=== PATIENT | female | born 1975 | race African-American/Black ===

== ENCOUNTER 2017-05-11 15:02 | Emergency (ER) | payer MEDICARE, MEDICAID, OTHER ==
[2017-05-11] MEDS ORDERED: Ketorolac Tromethamine 30 MG/ML VIAL ONE (17:35)
[2017-05-11 17:59] LABS: Bilirubin Small (Negative); Blood, Urine Negative (Negative); Glucose, Urine (Dipstick) Negative (Negative); Ketone, Urine Negative (Negative); Nitrite Negative (Negative); Protein, Urine (Dipstick) 30 mg/dL (Neg-Trace)
[2017-05-11 18:14] LABS: Bacteria/HPF 1+ HPF (None Seen)
[2017-05-11 18:16] LABS: Hyaline Casts/LPF 0-3 HYALINE CAST LPF (0-3 Hyaline); RBC/HPF 0-3 HPF (0-3)
--- NOTE | 2017-05-11 19:03 | RAD ---
TWO VIEWS LUMBAR SPINE: History: Back pain. Date: 05-11-17 Comparison: 05-30-13 FINDINGS: AP and lateral views obtained and demonstrate five non rib bearing lumbar vertebrae. No evidence of l umbar spine fractures, subluxations, or bony lesions seen. IMPRESSION: Normal two views lumbar spine. POS: [facility]
== END 2017-05-11 18:51 | disposition home or self-care (01) ==
LOC: ERS 15:02
DX: M54.5 Low back pain (principal); I10 Essential (primary) hypertension; M10.9 Gout, unspecified; J45.909 Unspecified asthma, uncomplicated; F32.9 Major depressive disorder, single episode, unspecified; F17.210 Nicotine dependence, cigarettes, uncomplicated; X50.1XXA Overexertion from prolonged static or awkward postures, initial encounter
CPT/HCPCS: 72100; 81003; 81015; 81025; 96372; 99406; J1885

== ENCOUNTER 2023-11-06 00:57 | Inpatient (IN) | payer MEDICARE, MEDICAID ==
[2023-11-06] MEDS ORDERED: Nitroglycerin 50 MG/250 ML BOT 250 ML ONE (01:02)
[2023-11-06] MEDS ORDERED: Propofol 1,000 MG/100 ML VIAL IV ONE ×2 (01:10→04:13)
[2023-11-06] MEDS ORDERED: Furosemide 40 MG (4 mL) VIAL ONE (01:10)
[2023-11-06] MEDS ORDERED: Ketorolac Tromethamine 30 MG (1 mL) VIAL ONE (01:24)
[2023-11-06] MEDS ORDERED: Cefepime 2 GM VIAL ONE ×2 (01:24→01:43)
[2023-11-06] MEDS ORDERED: methylPREDNISolone Sod Succ/PF 125 MG/2 ML VIAL ONE (01:24)
[2023-11-06] MEDS ORDERED: Sodium Chloride 0.9% 100 ML ONE ×2 (01:25→01:43)
[2023-11-06 01:27] LABS: #Basophils 0.08 10x3/uL (0.0-0.2); #Eosinphils Less than 0.03 10x3/uL (0.0-0.7); %Basophils 0.4 % (0.0-1.0); %Lymphocytes 8.4 % (21.0-51.0); %Monocytes 2.6 % (0.0-10.0); %Neutrophils 87.6 % (42.0-75.0); Hematocrit 27.5 % (36.0-47.0); Hemoglobin 7.6 g/dL (12.0-16.0); Mean Corpuscular HGB CONC 27.6 g/dL (32.0-36.0); Mean Corpuscular Hemoglobin 18.2 pg (27.0-31.0); Mean Corpuscular Volume 65.9 fL (78.0-98.0); Mean Platelet Volume 9.2 fL (7.4-10.4); Platelet Count 507 10x3/uL (130-400); Red Blood Cell (RBC) Count 4.17 mill/uL (4.20-5.40)
[2023-11-06 01:36] LABS: BHCG - Serum Negative (NEGATIVE); Pregs Control Background? CLEAR/WHITE (CLR/WHITE); Pregs Control Bar Appear? YES (CONTROL BAR)
[2023-11-06 01:41] LABS: INR-International Normal Ratio 1.3; PTT 31.1 sec (22.9-36.1); Prothrombin Time 16.4 sec (12.0-14.7)
[2023-11-06 01:43] LABS: Bacteria/HPF None Seen HPF (None Seen); Bilirubin Negative (Negative); Blood, Urine 1+ (Negative); CAUTI Indications for Culture Alt mental st,lethar; Clarity Clear (Clear); Glucose, Urine (Dipstick) 200 mg/dL (Negative); Ketone, Urine Negative (Negative); Leukocyte Negative Leu/uL (Negative); Nitrite Negative (Negative); Protein, Urine (Dipstick) 300 mg/dL (Neg-Trace); RBC/HPF 0-3 HPF (0-3); Specific Gravity, Urine 1.013 (1.002-1.036); Squamous Epithelial 0-3 HPF (0-3); Urobilinogen Normal mg/dL (Less than 2); pH, Urine 6.5 (5.0-9.0)
[2023-11-06 01:44] LABS: ALT (SGPT) 45 U/L (8-55); AST (SGOT) 90 U/L (5-34); Alkaline Phosphatase 287 U/L (40-110); Anion Gap 17 mmol/L (10-20); BUN (Urea Nitrogen) 20 mg/dL (7.0-18.7); Bilirubin, Total 1.4 mg/dL (0.2-1.2); Calc. Creatinine Clearance 0 mL/min (70-130); Calcium 8.4 mg/dL (7.8-10.44); Carbon Dioxide 20 mmol/L (22-29); Chloride 104 mmol/L (98-107); Estimated GFR 33; Globulin 3.9 g/dL (2.4-3.5); Glucose 303 mg/dL (70-105); Lipase 33 U/L (8-78); Potassium 3.2 mmol/L (3.5-5.1); Protein, Total 6.9 g/dL (6.0-8.3); Sodium 138 mmol/L (136-145)
[2023-11-06 01:45] LABS: Urine Culture Reflex No No
[2023-11-06 01:48] LABS: Troponin I 0.076 ng/mL (< 0.028)
[2023-11-06 01:49] LABS: Actual Bicarbonate (HCO3a) 18.4 mEq/L (22-28); Analyzer IN Cardio ER; Base Excess (BEa) -8.6 mEq/L (-2.0 to +3.0); CO2 Tension 45.2 mmHg (35.0-45.0); Calcium, Ionized (arterial) 1.13 mmol/L (1.12-1.30); Carboxyhemoglobin (COHb) 1.2 gm% (0.0-3.0); Hematocrit-ABG 25 % (36.0-47.0); Hemoglobin (Hb) 8.5 g/dL (12.0-16.0); O2 Tension (PaO2), arterial 179.4 mmHg (80.0-100.0); Potassium - ABG Lab 2.96 mmol/L (3.70-5.30); pH, Arterial 7.228 (7.35-7.45)
[2023-11-06 01:53] LABS: Puncture Site RRA
[2023-11-06] MEDS ORDERED: Aspirin Chewable 81 MG TAB ONE (01:57)
[2023-11-06] MEDS ORDERED: Vancomycin (BATCH) 2 GM/500 ML BAG ONE ×2 (02:04→02:08)
[2023-11-06 02:27] LABS: Influenza A by NAA Not Detected (NotDetected); Influenza B by NAA Not Detected (NotDetected); SARS-CoV-2 NAA Rapid Test Not Detected (NotDetected)
[2023-11-06] MEDS ORDERED: Ondansetron PF 4 MG/2 ML Vial IVP PRN (02:56)
[2023-11-06] MEDS ORDERED: Acetaminophen 325 MG TAB PER TUBE PRN (02:56)
[2023-11-06] MEDS ORDERED: fentaNYL 50 mcg/mL 1 mL Vial ONE (02:57)
[2023-11-06] MEDS ORDERED: Fentanyl CADD 100 ML IV SCH (04:00)
[2023-11-06 04:25] LABS: #Basophils Less than 0.03 10x3/uL (0.0-0.2); #Eosinphils Less than 0.03 10x3/uL (0.0-0.7); %Basophils 0.2 % (0.0-1.0); %Lymphocytes 1.3 % (21.0-51.0); %Monocytes 2.5 % (0.0-10.0); %Neutrophils 95.3 % (42.0-75.0); Hematocrit 22.5 % (36.0-47.0); Hemoglobin 6.2 g/dL (12.0-16.0); Mean Corpuscular HGB CONC 27.6 g/dL (32.0-36.0); Mean Corpuscular Hemoglobin 18.1 pg (27.0-31.0); Mean Corpuscular Volume 65.8 fL (78.0-98.0); Mean Platelet Volume 9.1 fL (7.4-10.4); Platelet Count 334 10x3/uL (130-400); RBC Distribution Width 21.2 % (11.5-14.5); Red Blood Cell (RBC) Count 3.42 mill/uL (4.20-5.40)
[2023-11-06] MEDS ORDERED: Dextrose 5% in Water 1,000 ML IV PRN (04:47)
[2023-11-06] MEDS ORDERED: Glucagon 1 MG/ML KIT IM PRN (04:47)
[2023-11-06] MEDS ORDERED: Dextrose 50% Abboject 50 ML SYRINGE SLOW IVP PRN (04:47)
[2023-11-06] MEDS ORDERED: Electrolyte Replacement Protocol 1 EACH FS PRN (04:48)
[2023-11-06 04:53] LABS: ALT (SGPT) 36 U/L (8-55); AST (SGOT) 61 U/L (5-34); Albumin 2.5 g/dL (3.5-5.0); Alkaline Phosphatase 219 U/L (40-110); Anion Gap 14 mmol/L (10-20); BUN (Urea Nitrogen) 22 mg/dL (7.0-18.7); Bilirubin, Total 0.8 mg/dL (0.2-1.2); Calc. Creatinine Clearance 0 mL/min (70-130); Calcium 7.6 mg/dL (7.8-10.44); Carbon Dioxide 19 mmol/L (22-29); Chloride 109 mmol/L (98-107); Estimated GFR 30; Globulin 3.1 g/dL (2.4-3.5); Glucose 218 mg/dL (70-105); Iron 12 ug/dL (50-170); Iron Binding Capacity, Total 381 mcg/dL (265-497); Potassium 2.8 mmol/L (3.5-5.1); Protein, Total 5.6 g/dL (6.0-8.3); Sodium 139 mmol/L (136-145)
[2023-11-06 05:16] LABS: Iron 30 ug/dL (50-170); Iron Binding Capacity, Total 381 mcg/dL (265-497)
[2023-11-06 05:56] VITALS: BMI 39.6
[2023-11-06] MEDS ORDERED: Furosemide 40 MG (4 mL) VIAL SLOW IVP SCH (06:00)
[2023-11-06] MEDS: Potassium Chloride 20 MEQ TAB PER TUBE SCH (06:16)
[2023-11-06] MEDS: Potassium Bicarbonate/Cit Ac 20 MEQ TAB PER TUBE SCH ×2 (06:21→13:59)
[2023-11-06] MEDS: Magnesium 2 GM/50 ML(in water) 2 GM in Premix 1 BAG IVPB SCH (06:22)
[2023-11-06] MEDS: Doxycycline 100 MG in Sodium Chloride 0.9% 100 ML IVPB SCH (06:22)
[2023-11-06] MEDS ORDERED: Fentanyl BOLUS 250 ML IVPB PRN (06:45)
[2023-11-06] MEDS ORDERED: Morphine 2 MG/ML VIAL SLOW IVP PRN (06:45)
[2023-11-06] MEDS ORDERED: Lorazepam 2 MG/ML VIAL SLOW IVP PRN (06:45)
[2023-11-06] MEDS ORDERED: Propofol BOLUS 1,000 MG/100 ML VIAL IV PRN (06:45)
[2023-11-06] MEDS ORDERED: HumaLOG 300 UNITS/3 ML VIAL SC PRN (07:03)
[2023-11-06] MEDS: Ipratropium/Albuterol 3 ML NEB EZPAP SCH (07:13)
[2023-11-06] MEDS: Propofol 1,000 MG/100 ML VIAL IV PRN (07:39)
[2023-11-06 07:42] LABS: Hemoglobin A1c 5.7 % (4.0-6.0)
[2023-11-06] MEDS ORDERED: Carvedilol 25 MG TAB PO SCH (08:00)
[2023-11-06 08:06] LABS: Amphetamine Not Detected (NotDetected); Barbiturates Screen Not Detected (NotDetected); Benzodiazepine Screen Not Detected (NotDetected); Cocaine Metabolite Screen Detected (NotDetected); Methadone Not Detected (NotDetected); Methamphetamine Not Detected (NotDetected); Opiate Screen Not Detected (NotDetected); Oxycodone Screen Not Detected (NotDetected); Phencyclidine (PCP) Detected (NotDetected); THC/Cannabinoid Screen Not Detected (NotDetected); Tricyclic Screen Not Detected (NotDetected)
[2023-11-06 08:41] LABS: Legionella Urinary Ag Negative (Negative); Strep pneumo Urine Ag NEGATIVE (NEGATIVE)
[2023-11-06] MEDS ORDERED: Heparin 5,000 UNITS/ML VIAL SC SCH (09:00)
[2023-11-06] MEDS: Amlodipine 10 MG TAB PO SCH (09:17)
[2023-11-06] MEDS: Pantoprazole 40 MG VIAL IVP SCH (09:17)
[2023-11-06] MEDS: Ventilator Sedation Protocol 1 EACH FS ONE (09:21)
[2023-11-06] MEDS ORDERED: Iopamidol-370 76% 500 ML MDV (1 ML CHARGE) ONE (11:26)
[2023-11-06] MEDS: HumaLOG 300 UNITS/3 ML VIAL SC PRN (12:40)
[2023-11-06 13:14] LABS: #Basophils Less than 0.03 10x3/uL (0.0-0.2); #Eosinphils Less than 0.03 10x3/uL (0.0-0.7); %Basophils 0.1 % (0.0-1.0); %Lymphocytes 2.1 % (21.0-51.0); %Monocytes 3.2 % (0.0-10.0); %Neutrophils 94.1 % (42.0-75.0); Hematocrit 25.1 % (36.0-47.0); Hemoglobin 7.2 g/dL (12.0-16.0); Mean Corpuscular HGB CONC 28.7 g/dL (32.0-36.0); Mean Corpuscular Hemoglobin 18.8 pg (27.0-31.0); Mean Corpuscular Volume 65.5 fL (78.0-98.0); Mean Platelet Volume 9.1 fL (7.4-10.4); Platelet Count 334 10x3/uL (130-400); RBC Distribution Width 22.9 % (11.5-14.5); Red Blood Cell (RBC) Count 3.83 mill/uL (4.20-5.40)
[2023-11-06 13:17] LABS: Anion Gap 19 mmol/L (10-20); BUN (Urea Nitrogen) 23 mg/dL (7.0-18.7); Calc. Creatinine Clearance 52 mL/min (70-130); Calcium 8.1 mg/dL (7.8-10.44); Carbon Dioxide 18 mmol/L (22-29); Chloride 109 mmol/L (98-107); Estimated GFR 29; Glucose 170 mg/dL (70-105); Potassium 3.5 mmol/L (3.5-5.1); Sodium 142 mmol/L (136-145)
[2023-11-06 13:48] LABS: Anisocytosis SLIGHT = 6-15 cells HPF (0-5); Microcytosis MODERATE=15-30 cells HPF (0-5); Platelet Adequacy Comment Platelets Normal; Poikilocytosis MODERATE=16-30 cells HPF (0-5); Polychromasia SLIGHT = 2-3 cells HPF (0-2)
[2023-11-06] MEDS: Cefepime 1 GM in Sodium Chloride 0.9% 100 ML IVPB SCH (13:58)
[2023-11-06] MEDS: Furosemide 20 MG (2 mL) VIAL SLOW IVP SCH (13:58)
[2023-11-06] MEDS: Fentanyl CADD 100 ML IV SCH (15:23)
[2023-11-07] MEDS: Vancomycin 1 GM in Premix 1 BAG IVPB SCH (02:00)
[2023-11-07 05:53] LABS: #Basophils 0.03 10x3/uL (0.0-0.2); #Eosinphils Less than 0.03 10x3/uL (0.0-0.7); %Basophils 0.3 % (0.0-1.0); %Eosinophils 0.1 % (0.0-10.0); %Lymphocytes 5.8 % (21.0-51.0); %Monocytes 4.1 % (0.0-10.0); %Neutrophils 89.1 % (42.0-75.0); Hematocrit 25.9 % (36.0-47.0); Hemoglobin 7.4 g/dL (12.0-16.0); Mean Corpuscular HGB CONC 28.6 g/dL (32.0-36.0); Mean Corpuscular Hemoglobin 18.7 pg (27.0-31.0); Mean Corpuscular Volume 65.4 fL (78.0-98.0); Platelet Count 309 10x3/uL (130-400); RBC Distribution Width 23.2 % (11.5-14.5); Red Blood Cell (RBC) Count 3.96 mill/uL (4.20-5.40)
[2023-11-07 06:01] LABS: Vancomycin, Random 31.3 ug/mL (See Comment)
[2023-11-07 06:03] LABS: ALT (SGPT) 37 U/L (8-55); AST (SGOT) 41 U/L (5-34); Albumin 2.5 g/dL (3.5-5.0); Alkaline Phosphatase 174 U/L (40-110); Anion Gap 13 mmol/L (10-20); BUN (Urea Nitrogen) 27 mg/dL (7.0-18.7); Bilirubin, Total 0.8 mg/dL (0.2-1.2); Calc. Creatinine Clearance 51 mL/min (70-130); Calcium 8.4 mg/dL (7.8-10.44); Carbon Dioxide 21 mmol/L (22-29); Chloride 110 mmol/L (98-107); Estimated GFR 28; Glucose 86 mg/dL (70-105); Potassium 3.3 mmol/L (3.5-5.1); Protein, Total 5.5 g/dL (6.0-8.3); Sodium 141 mmol/L (136-145)
[2023-11-07 07:51] LABS: Actual Bicarbonate (HCO3a) 22.4 mEq/L (22-28); Base Excess (BEa) -1.2 mEq/L (-2.0 to +3.0); CO2 Tension 32.5 mmHg (35.0-45.0); Calcium, Ionized (arterial) 1.11 mmol/L (1.12-1.30); Carboxyhemoglobin (COHb) 2.3 gm% (0.0-3.0); Hematocrit-ABG 22 % (36.0-47.0); Hemoglobin (Hb) 7.5 g/dL (12.0-16.0); O2 Tension (PaO2), arterial 107.8 mmHg (80.0-100.0); Potassium - ABG Lab 3.17 mmol/L (3.70-5.30); pH, Arterial 7.456 (7.35-7.45)
[2023-11-07] MEDS: Potassium Chloride 20 MEQ in Premix 1 BAG IVPB SCH ×2 (07:54→23:41)
[2023-11-07 07:55] LABS: ALV-art Gradient 136.775 mmHg (0-20); Puncture Site RRA
[2023-11-07] MEDS: hydrALAZINE 20 MG/ML VIAL SLOW IVP PRN (10:46)
[2023-11-07] MEDS: niCARdipine 25 MG in Sodium Chloride 0.9% 250 ML 250 ML IVPB SCH (10:50)
[2023-11-07] MEDS: hydrALAZINE 25 MG TAB PO SCH (13:18)
[2023-11-07] MEDS: Labetalol HCl 100 MG/20 ML VIAL SLOW IVP PRN (14:01)
[2023-11-07] MEDS: Labetalol HCl 100 MG/20 ML VIAL ONE (14:02)
[2023-11-07 15:24] LABS: Potassium 3.2 mmol/L (3.5-5.1)
[2023-11-07] MEDS ORDERED: Carvedilol 25 MG TAB PO SCH (17:00)
[2023-11-07] MEDS: Loratadine 10 MG TAB PO SCH (21:18)
[2023-11-07] MEDS: Fluticasone Propionate Nasal Spray 16 gm Bottle NASAL SCH (21:19)
[2023-11-08 06:45] LABS: #Basophils 0.04 10x3/uL (0.0-0.2); #Eosinphils Less than 0.03 10x3/uL (0.0-0.7); %Basophils 0.4 % (0.0-1.0); %Eosinophils 0.1 % (0.0-10.0); %Lymphocytes 7.8 % (21.0-51.0); %Monocytes 2.7 % (0.0-10.0); %Neutrophils 87.8 % (42.0-75.0); Hematocrit 27.1 % (36.0-47.0); Hemoglobin 7.6 g/dL (12.0-16.0); Mean Corpuscular Hemoglobin 18.5 pg (27.0-31.0); Mean Corpuscular Volume 65.9 fL (78.0-98.0); Mean Platelet Volume 9.5 fL (7.4-10.4); Platelet Count 276 10x3/uL (130-400); RBC Distribution Width 24.2 % (11.5-14.5); Red Blood Cell (RBC) Count 4.11 mill/uL (4.20-5.40)
[2023-11-08 07:00] LABS: ALT (SGPT) 47 U/L (8-55); AST (SGOT) 72 U/L (5-34); Albumin 2.6 g/dL (3.5-5.0); Alkaline Phosphatase 163 U/L (40-110); Anion Gap 16 mmol/L (10-20); BUN (Urea Nitrogen) 21 mg/dL (7.0-18.7); Bilirubin, Total 0.9 mg/dL (0.2-1.2); Calc. Creatinine Clearance 67 mL/min (70-130); Calcium 8.5 mg/dL (7.8-10.44); Carbon Dioxide 17 mmol/L (22-29); Chloride 109 mmol/L (98-107); Estimated GFR 39; Globulin 3.9 g/dL (2.4-3.5); Glucose 89 mg/dL (70-105); Potassium 3.5 mmol/L (3.5-5.1); Protein, Total 6.5 g/dL (6.0-8.3); Sodium 138 mmol/L (136-145)
[2023-11-08] MEDS: Potassium Chloride 20 MEQ in Premix 1 BAG IVPB SCH (09:08)
[2023-11-08] MEDS: Furosemide 20 MG TAB PO SCH (10:23)
[2023-11-08] MEDS: Fluticasone Propionate Nasal Spray 16 gm Bottle NASAL SCH (10:24)
[2023-11-08] MEDS: Carvedilol 6.25 MG TAB PO SCH ×2 (11:43→20:13)
[2023-11-08] MEDS: methylPREDNISolone Sod Succ 40 MG VIAL IVP SCH (11:45)
[2023-11-08 17:46] LABS: Potassium 3.7 mmol/L (3.5-5.1)
[2023-11-09 06:25] LABS: #Basophils Less than 0.03 10x3/uL (0.0-0.2); #Eosinphils Less than 0.03 10x3/uL (0.0-0.7); %Basophils 0.1 % (0.0-1.0); %Lymphocytes 8.5 % (21.0-51.0); %Monocytes 1.8 % (0.0-10.0); %Neutrophils 88.7 % (42.0-75.0); Hematocrit 29.1 % (36.0-47.0); Hemoglobin 8.3 g/dL (12.0-16.0); Mean Corpuscular HGB CONC 28.5 g/dL (32.0-36.0); Mean Corpuscular Hemoglobin 18.6 pg (27.0-31.0); Mean Corpuscular Volume 65.2 fL (78.0-98.0); Mean Platelet Volume 9.1 fL (7.4-10.4); Platelet Count 324 10x3/uL (130-400); RBC Distribution Width 24.2 % (11.5-14.5); Red Blood Cell (RBC) Count 4.46 mill/uL (4.20-5.40)
[2023-11-09 06:46] LABS: Anion Gap 17 mmol/L (10-20); BUN (Urea Nitrogen) 26 mg/dL (7.0-18.7); Calc. Creatinine Clearance 77 mL/min (70-130); Carbon Dioxide 19 mmol/L (22-29); Chloride 105 mmol/L (98-107); Estimated GFR 47; Glucose 160 mg/dL (70-105); Potassium 3.8 mmol/L (3.5-5.1); Sodium 137 mmol/L (136-145)
[2023-11-09] MEDS: DC Sedation Protocol FS ONE (13:41)
[2023-11-10 06:43] LABS: Hematocrit 28.9 % (36.0-47.0); Hemoglobin 8.4 g/dL (12.0-16.0); Mean Corpuscular HGB CONC 29.1 g/dL (32.0-36.0); Mean Corpuscular Hemoglobin 18.9 pg (27.0-31.0); Mean Corpuscular Volume 65.1 fL (78.0-98.0); Mean Platelet Volume 9.4 fL (7.4-10.4); Platelet Count 363 10x3/uL (130-400); RBC Distribution Width 24.3 % (11.5-14.5); Red Blood Cell (RBC) Count 4.44 mill/uL (4.20-5.40)
[2023-11-10 06:55] LABS: Anion Gap 11 mmol/L (10-20); BUN (Urea Nitrogen) 41 mg/dL (7.0-18.7); Calc. Creatinine Clearance 66 mL/min (70-130); Carbon Dioxide 21 mmol/L (22-29); Chloride 107 mmol/L (98-107); Estimated GFR 38; Glucose 110 mg/dL (70-105); Potassium 3.2 mmol/L (3.5-5.1); Sodium 136 mmol/L (136-145)
[2023-11-10 07:29] LABS: Band 7 % (5-11); Elliptocytes SLIGHT = 2-5 cells HPF (0-1); Hypochromia SLIGHT = 6-15 cells HPF (0-5); Lymphocytes 3 % (21-51); Macrocytosis SLIGHT = 6-15 cells HPF (0-5); Monocytes 2 % (0-10); Neutrophil 88 % (42-75); Nucleated RBC (Manual Ct) 1 % (0); Platelet Adequacy Comment Platelets Normal; Polychromasia SLIGHT = 2-3 cells HPF (0-2); Schistocytes SLIGHT = 2-5 cells HPF (0-1); Target Cells SLIGHT = 2-5 cells HPF (0-1)
[2023-11-10] MEDS: Potassium Chloride 20 MEQ TAB PO SCH (08:26)
[2023-11-10] MEDS: Pantoprazole DR 40 MG TAB PO SCH (08:27)
[2023-11-10] MEDS ORDERED: GUAIFENESIN SF SOLN 200 MG/10 ML UDCUP PO PRN (20:23)
[2023-11-10] MEDS: Benzonatate 100 MG CAP PO PRN (20:44)
[2023-11-11] MEDS: diphenhydrAMINE 25 MG CAP PO SCH (02:30)
[2023-11-11 10:19] VITALS: BMI 39.5
[2023-11-11] MEDS ORDERED: Potassium Chloride 20 MEQ TAB PO SCH (11:15)
[2023-11-11] MEDS: Potassium Chloride 20 MEQ TAB PO SCH (12:46)
[2023-11-11] MEDS: Amitriptyline HCl 100 MG TAB PO SCH (20:22)
[2023-11-11] MEDS: Doxycycline 100 MG CAP PO SCH (20:22)
[2023-11-11] MEDS: Atorvastatin Calcium 20 MG TAB PO SCH (20:22)
[2023-11-11] MEDS: Cefdinir 300 MG CAP PO SCH (20:22)
[2023-11-12 09:13] LABS: Anion Gap 17 mmol/L (10-20); BUN (Urea Nitrogen) 25 mg/dL (7.0-18.7); Calc. Creatinine Clearance 81 mL/min (70-130); Calcium 8.4 mg/dL (7.8-10.44); Carbon Dioxide 18 mmol/L (22-29); Chloride 112 mmol/L (98-107); Estimated GFR 49; Glucose 120 mg/dL (70-105); Magnesium 1.3 mg/dL (1.6-2.6); Potassium 3.6 mmol/L (3.5-5.1); Sodium 143 mmol/L (136-145)
[2023-11-12] MEDS ORDERED: Ipratropium/Albuterol 3 ML NEB NEB PRN (10:09)
[2023-11-12] MEDS: Magnesium Sulfate In Water 4 GM in Premix 1 BAG IVPB SCH (10:50)
[2023-11-12 12:25] VITALS: BP 144/87; TEMP 98.1
== END 2023-11-12 16:07 | disposition home or self-care (01) | DRG 871 ==
LOC: ERS 00:57 → CCU 02:59 → IMCU/EMU 11-09 15:47 → T4-A 11-10 11:47
PROVIDERS: ADMIT Internal Medicine; ATTEND Internal Medicine
PROC: 0BH17EZ Insertion of Endotracheal Airway into Trachea, Via Natural or Artificial Opening (ICD-10-PCS; principal; 2023-11-06)
PROC: 5A1945Z Respiratory Ventilation, 24-96 Consecutive Hours (ICD-10-PCS; 2023-11-06)
PROC: 30233N1 Transfusion of Nonautologous Red Blood Cells into Peripheral Vein, Percutaneous Approach (ICD-10-PCS; 2023-11-06)
PROC: 4A033R1 Measurement of Arterial Saturation, Peripheral, Percutaneous Approach (ICD-10-PCS; 2023-11-06)
PROC: 5A09357 Assistance with Respiratory Ventilation, Less than 24 Consecutive Hours, Continuous Positive Airway Pressure (ICD-10-PCS; 2023-11-08)
DX: A41.9 Sepsis, unspecified organism (principal); I50.33 Acute on chronic diastolic (congestive) heart failure; J18.9 Pneumonia, unspecified organism; J96.01 Acute respiratory failure with hypoxia; I16.1 Hypertensive emergency; N17.9 Acute kidney failure, unspecified; E87.4 Mixed disorder of acid-base balance; D62 Acute posthemorrhagic anemia; E87.6 Hypokalemia; D16.02 Benign neoplasm of scapula and long bones of left upper limb; F41.9 Anxiety disorder, unspecified; J45.909 Unspecified asthma, uncomplicated; I11.0 Hypertensive heart disease with heart failure; N92.0 Excessive and frequent menstruation with regular cycle; F32.A Depression, unspecified; E78.5 Hyperlipidemia, unspecified; E66.01 Morbid (severe) obesity due to excess calories; T50.2X5A Adverse effect of carbonic-anhydrase inhibitors, benzothiadiazides and other diuretics, initial encounter; F14.10 Cocaine abuse, uncomplicated; F16.10 Hallucinogen abuse, uncomplicated; Z91.018 Allergy to other foods; Z87.891 Personal history of nicotine dependence; Z79.82 Long term (current) use of aspirin; Z79.899 Other long term (current) drug therapy; Z88.5 Allergy status to narcotic agent; Z79.52 Long term (current) use of systemic steroids; Z68.39 Body mass index [BMI] 39.0-39.9, adult; Z71.51 Drug abuse counseling and surveillance of drug abuser
CPT/HCPCS: 36415; 36416; 36430; 36600; 51702; 70450; 71045; 71275; 80048; 80053; 80202; 80306; 81001; 82805; 83036; 83540; 83550; 83605; 83690; 83735; 83880; 84145; 84443; 84484; 84703; 85025; 85610; 85730; 86850; 86900; 86901; 87040; 87070; 87086; 87205; 87449; 87807; 87899; 93005; 93306; 94002; 94003; 94640; 94660; 96365; 96366; 96368; 96375; 96376; C9113; J0360; J0692; J1815; J1885; J1940; J2704; J2920; J2930; J3010; J3370; J3370-JW; J3475; J3480; J3490; J7050; J7620; P9016; Q9967